=== PATIENT | female | born 1985 | race Caucasian/White ===

== ENCOUNTER 2021-08-13 09:37 | Emergency (ER) | payer SELFPAY ==
[2021-08-13 09:50] VITALS: BP 142/91; PULSE 79; RESP 16; TEMP 36.8; O2SAT 98; BMI 24.9
[2021-08-13 09:55] VITALS: BP 100/71; PULSE 85; RESP 20; O2SAT 100
--- NOTE | 2021-08-13 09:55 | XR_ITS ---
WS: [id number] PORTABLE CHEST HISTORY: cough COMPARISON: None available. Lungs are clear and well expanded. No pleural effusion or pneumothorax. Cardiac size: Normal. Mediastinum/Aorta: Normal mediastinum. No osseous abnormality seen. XR/XR chest 1V portable [id number] IMPRESSION: Unremarkable portable chest.
--- NOTE | 2021-08-13 09:55 | W.ED.URI ---
HPI - URI/Sore Throat General: Chief Complaint: General Medical Stated Complaint: COUGH AND DONT FEEL GOOD Time Seen by Provider: 08/13/21 09:38 Source: patient Mode of arrival: ambulatory Limitations: no limitations History of Present Illness: HPI Narrative: Patient is a 35-year-old female who presents to ED today with a complaint of not feeling well . Patient tells me she is having nasal congestion, rhinorrhea, sinus pain, sore throat, and a cough. She has not been running fevers. She does not complain of body aches. No abdominal pain/nausea/vomiting/diarrhea. She states her son was recently sick with similar symptoms. She does not complain of chest pain or shortness of breath. No loss of taste or smell. She is un-vaccinated for COVID. MD elicited complaint: cough, sore throat, rhinorrhea, nasal congestion and sinus pain Onset (ago): day(s) Consistency: constant Severity: moderate Description of mucous: clear Able to tolerate fluids by mouth: Yes Exacerbating factors: nothing Relieving factors: nothing Context: sick contacts (son) Associated symptoms: Reports nasal congestion and sinus pain; Deny abdominal pain, chills, chest pain, diarrhea, epistaxis, ear or mastoid pain, fever(s), headache(s), nausea or vomiting Treatments prior to arrival: none Review of Systems Const: Denies: fever(s), chills, body aches, fatigue or malaise Eyes: Denies: change in vision, blurry vision or photophobia ENMT: Reports: throat pain, odynophagia, nasal discharge, nasal congestion and sinus pain; Denies: ear or mastoid pain, ear discharge or epistaxis Card: Denies: chest pain, palpitations, irregular heart rhythm, edema, lightheadedness, syncope or pre-syncope Resp: Reports: productive cough and chest congestion; Denies: dyspnea, wheezing, pain on inspiration or hemoptysis GI: Denies: abdominal pain, nausea, vomiting or diarrhea : Denies: flank pain or dysuria Musc: Denies: neck pain, back pain, extremity pain or joint pain Skin/Breast: Denies: rash Neuro: Denies: headache(s), numbness in extremities, weakness in extremities, sensory changes or dizziness Physical Exam Const: COMMON NORMALS: no acute distress, average body habitus, patient oriented x3, no limitations, healthy appearing, alert and well nourished GENERAL APPEARANCE: cooperative ORIENTATION/CONSCIOUSNESS: Yes awake, Yes oriented to person, Yes oriented to place and Yes oriented to time HENMT: COMMON NORMALS: normocephalic, atraumatic, hearing grossly normal bilaterally, external ears normal, EAC's normal, TM's normal bilaterally, Normal external nose present, Normal nasal mucous membranes and turbinates present, moist oral mucous membranes and oropharynx normal HEAD & SCALP: normal to inspection, normocephalic and atraumatic FACE & SINUS: normal facial exam and sinuses nontender NOSE: Normal external nose present and Normal nasal mucous membranes and turbinates present EXTERNAL EAR: Yes external ears normal EXTERNAL AUDITORY CANAL: EAC's normal TYMPANIC MEMBRANE: TM's normal bilaterally MOUTH: Normal oral and palatal mucosa present, lip normal and tongue normal THROAT: posterior oropharynx normal, tonsils normal and uvula midline Eye: COMMON NORMALS: Equal, round and reactive pupils present, EOMs intact bilaterally and conjunctivae normal GENERAL EYE: appearance normal, both eyes and all related structures CONJUNCTIVA: Yes conjunctivae normal PUPIL: Yes Equal, round and reactive pupils present Neck/C-Spine: COMMON NORMALS: full ROM, no lymphadenopathy and no meningeal signs GENERAL: Yes normal visual inspection Resp: COMMON NORMALS: normal respiratory effort and clear to auscultation bilaterally AUSCULTATION: clear to auscultation bilaterally Cardio: COMMON NORMALS: regular rate and regular rhythm RATE: regular rate RHYTHM: regular rhythm Extremity: COMMON NORMALS: normal to inspection Neuro: COMMON NORMALS: patient oriented x3 SENSORIUM/ORIENTATION: Yes alert, Yes oriented to person, Yes oriented to place and Yes oriented to time MENINGEAL SIGNS: Yes no meningeal signs Skin: COMMON NORMALS: no rashes or lesions noted GENERAL SKIN EXAM: no rashes or lesions noted Course Vital Signs: Vital signs: Vital Signs Temperature 98.6 F 08/13/21 11:29 Pulse Rate 64 08/13/21 11:29 Respiratory Rate 20 H 08/13/21 11:29 Blood Pressure 95/71 08/13/21 11:29 Pulse Oximetry 98 08/13/21 11:29 MDM - URI/Sore Throat MDM Narrative: Medical decision making narrative: Patient appears in no acute distress. Her vital signs are stable. Symptoms most likely consistent with viral upper respiratory especially given the fact that her son recently recovered from almost identical symptoms. Rapid COVID is negative. CXR is normal. Recommend conservative treatment at home and follow-up with primary care early next week if symptoms are persisting. Return to ED precautions given. Lab Data: Attestation: I reviewed the patient's lab results. Labs: Lab Results 08/13/21 10:23 SARS-CoV-2 Ag (Rap id) Negative (Negative) Imaging Data^: CXR: Radiologist's impression: [address] [id number] ReportSigned Patient: Vivian Conroy #: [id number]: [id number]#:[id number]/Sex: 35 / FADM Date: 08/13/21Loc: ERRoom/Bed:Attending Dr: Ordering Provider/Ordering MD: Sandra Carvajal Date of Service: 08/13/21 Procedure(s): XR chest 1V portable [id number] Accession Number(s): [id number] Report Number: [id number] WS: [id number] PORTABLE CHEST HISTORY: cough COMPARISON: None available. Lungs are clear and well expanded. No pleural effusion or pneumothorax. Cardiac size: Normal. Mediastinum/Aorta: Normal mediastinum. No osseous abnormality seen. XR/XR chest 1V portable [id number] IMPRESSION: Unremarkable portable chest. Dictated By:Keyana Collins DOSigned By:Keyana Collins DOSigned Date/Time:08/13/21 1010DD/ 1010 Discharge Plan Discharge Patient Disposition: Home Clinical Impression: Upper respiratory virus Condition: Stable Discharge Orders: Discharge ED (Routine); Ordered 08/13/21 Ordered By: Sandra Carvajal Referrals: Alvarez,BILLY Whitaker [Primary Care Provider] - Patient Instructions: Upper Respiratory Infection - Adult Coding Level of Care Code ED Director Statistical Programming for Chg Fwd Exam Comprehensive
[2021-08-13 11:16] LABS: SARS Covid-2 Antigen Negative (Negative)
[2021-08-13 11:29] VITALS: BP 95/71; PULSE 64; RESP 20; TEMP 37; O2SAT 98
== END 2021-08-13 11:31 | disposition home or self-care (01) ==
PROVIDERS: Emergency Provider Physician Assistant; PCP Nurse Practitioner Family
DX: J06.9 Acute upper respiratory infection, unspecified (principal); Z20.822 Contact with and (suspected) exposure to COVID-19
CPT/HCPCS: 71045; 87426; 99282

== ENCOUNTER → 2021-11-26 13:19 | Outpatient (BNVA) | payer OTHER, SELFPAY | PROVIDERS: PCP Nurse Practitioner Family | DX: Z20.822 Contact with and (suspected) exposure to COVID-19 (principal) | CPT/HCPCS: 87635 ==

== ENCOUNTER 2023-08-16 15:19 | Outpatient (CLI) | payer OTHER, SELFPAY ==
--- NOTE | 2023-08-16 15:50 | MM_ITS ---
WS: [id number] BILATERAL 3D TOMOSYNTHESIS DIGITAL DIAGNOSTIC MAMMOGRAPHY WITH CAD CLINICAL INFORMATION: RT BR LUMP HISTORY: RIGHT breast soreness COMPARISON: Baseline TECHNIQUE: Bilateral CC, MLO, and ML views. FINDINGS: Scattered fibroglandular densities bilaterally. Dense parenchymal tissue upper outer RIGHT breast in the area of concern. Ultrasound of this area is pending. No other suspicious abnormalities. LEFT breast is unremarkable. ULTRASOUND BREAST RIGHT TECHNIQUE: Ultrasound right breast focused area of concern. CLINICAL INFORMATION: RT BR LUMP FINDINGS: Ultrasound RIGHT breast upper outer quadrant. Normal underlying parenchymal tissue. No cystic or leodan d lesions. No suspicious lesions to target for biopsy. Recommend annual screening mammography age 40. IMPRESSION: MM/[place] [id number] BI-RADS: 2-Benign FOLLOW UP: Age 42
== END 2023-08-16 15:20 | disposition home or self-care (01) ==
LOC: RAD 15:20
PROVIDERS: PCP Nurse Practitioner Family; Visit Provider Nurse Practitioner Family
DX: N63.11 Unspecified lump in the right breast, upper outer quadrant (principal)
CPT/HCPCS: 76642; 77062; G0279

== ENCOUNTER → 2024-01-17 10:50 | Outpatient (BNVA) | payer MEDICAID, SELFPAY | PROVIDERS: PCP Nurse Practitioner Family; Visit Provider Nurse Practitioner Family | DX: G43.909 Migraine, unspecified, not intractable, without status migrainosus (principal); Z13.6 Encounter for screening for cardiovascular disorders | CPT/HCPCS: 80053; 80061; 82607; 83735; 84443; 85025 ==

== ENCOUNTER → 2024-01-31 11:19 | Outpatient (BNVA) | payer MEDICAID, SELFPAY | PROVIDERS: PCP Nurse Practitioner Family; Visit Provider Nurse Practitioner Family | DX: R35.0 Frequency of micturition (principal); Z11.3 Encounter for screening for infections with a predominantly sexual mode of transmission; J02.9 Acute pharyngitis, unspecified; Z12.4 Encounter for screening for malignant neoplasm of cervix | CPT/HCPCS: 81000; 81025; 87491; 87591; 87624; 87661; 87880 ==

== ENCOUNTER 2024-08-12 20:07 | Inpatient (IN) | payer MEDICAID, SELFPAY ==
[2024-08-12] VITALS (13 sets, daily range): BP systolic 99–161; BP diastolic 69–94; PULSE 71–108; RESP 13–18; TEMP 36.8; O2SAT 94–100; BMI 28.3
--- NOTE | 2024-08-12 20:36 | ED_ITS ---
Documented by User: Juan José VelezDO 08/12/24 20:42 HPI - Extremity Problem 2 General: Chief complaint: Extremity Injury, Lower Stated complaint: Bit By Snake Time Seen by Provider: 08/12/24 20:26 History of Present Illness: Patient arrives to the ER with complaints of snake bite on the back of her right ankle. Right ankle and foot are largely swollen. She says she is having very sharp severe pain. Patient says she did see the copperhead that bit her. The bite occurred at approximately 6 PM. Patient is never been bitten before. Related Data Previous Rx's Medication Instructions Recorded phentermine 37.5 mg tablet 37.5 mg PO DAILY #30 tabs 01/17/24 sumatriptan succinate 100 mg tablet See Rx Instructions PO .COMPLEX 01/17/24 #10 tabs topiramate 25 mg tablet (Topamax) 25 mg PO BID #60 tabs 01/17/24 etonogestrel 0.12 mg-ethinyl 1 vag ring vaginal ONCE #3 ea 01/31/24 estradiol 0.015 mg/24 hr vaginal ring (NuvaRing) Allergies Allergy/AdvReac Type Severity Reaction Status Date / Time No Known Allergies Allergy Verified 01/17/24 10:21 Review of Systems 2 General: Reports: 10 or more systems reviewed and unremarkable except in HPI and below PFSH ED 2 PFSH: Social History Smoking and tobacco/nicotine status: current every day tobacco/nicotine user cigarettes Female Reproductive History: Date of last menstrual period: 08/12/24 Physical Exam 2 Const: COMMON NORMALS: no acute distress, average body habitus, patient oriented x3, no limitations, healthy appearing, alert and well nourished HENMT: COMMON NORMALS: normocephalic, atraumatic, hearing grossly normal bilaterally, external ears normal, Normal external nose present and moist oral mucous membranes HEAD & SCALP: normocephalic and atraumatic NOSE: Normal external nose present EXTERNAL EAR: Yes external ears normal Neck/C-Spine: COMMON NORMALS: full ROM, no lymphadenopathy, supple, no meningeal signs, no JVD and Thyroid normal THYROID: Thyroid normal Chest: COMMONS NORMALS: normal inspection of the chest and normal palpation of entire chest wall Resp: COMMON NORMALS: normal respiratory effort, No retractions, No use of accessory muscles and clear to auscultation bilaterally AUSCULTATION: clear to auscultation bilaterally Cardio: COMMON NORMALS: no JVD, regular rate, regular rhythm, S1 normal heart sound present, S2 normal heart sound present, No gallops present (Cardio), No clicks present (Cardio), No murmurs present (Cardio) and No rub (Cardio) R ATE: regular rate RHYTHM: regular rhythm HEART SOUNDS: S1 normal heart sound present and S2 normal heart sound present GI: COMMON NORMALS: Normal to inspection, nondistended, normoactive bowel sounds present, Soft to palpation, non-tender, No hepatosplenomegaly present and no masses PALPATION: Yes Soft to palpation and Yes No hepatosplenomegaly present Extremity: NARRATIVE EXTREMITY EXAM: Right lower extremity grossly swollen Neuro: COMMON NORMALS: patient oriented x3 SENSORIUM/ORIENTATION: Yes alert MENINGEAL SIGNS: Yes no meningeal signs Course 2 Vital Signs: Vital signs: Vital Signs Temperature 97.9 F 08/13/24 14:00 Pulse Rate 94 08/13/24 16:00 Respiratory Rate 18 08/13/24 16:20 Blood Pressure 104/67 08/13/24 16:00 Pulse Oximetry 100 08/13/24 16:20 Oxygen Delivery Me thod Room Air 08/13/24 05:15 MDM - Extremity (Nontraumatic) Medical Records I reviewed the patient's medical records. Lab Data I reviewed the patient's lab results. 08/13/24 13:07 08/12/24 20:49 Radiology Impressions Venous Duplex 08/13/24 05:44 IMPRESSION: No evidence of deep vein thrombosis. Laboratory Results WBC 13.21 10^3/uL (3.29-11.43) H 08/13/24 01:29 RBC 4.74 10^6/uL (3.85-5.65) 08/13/24 01:29 Hgb 14.20 g/dL (11.27-16.99) 08/13/24 01: Hct 44.7 % (36-47) 08/13/24 01: MCV 94.3 fl (85-98) 08/13/24 01: MCH 30.0 pg (27-33) 08/13/24 01: MCHC 31.8 g/dL (30-55) D 08/13/24 01: RDW 12.4 % (12.1-15.1) 08/13/24: Plt Count 245 10^3/cmm (157-399) 08/13/24 01: MPV 9.7 fL (7.4-10.4) 08/13/24 01: Neut % (Auto) 91.3 % 08/13/24 01: Lymph % (Auto) 5.8 % 08/13/24 01: [place] % (Auto) 2.3 % 08/13/24 01: Eos % (Auto) 0.1 % 08/13/24 01: Baso % (Auto) 0.2 % 08/13/24: Neut # (Auto) 12.05 10^3/uL (1.8-7.7) H 08/13/24 01: Lymph # (Auto) 0.8 10^3/uL (0.8-4.8) 08/13/24: [place] # (Auto) 0.3 10^3/uL (0.2-0.9) 08/13/24 01: Eos # (Auto) 0.0 10^3/uL (0.0-0.8) 08/13/24: Baso # (Auto) 0.0 10^3/uL (0.0-0.1) 08/13/24: Nucleated RBC % (auto) 0 % 08/13/24: Nucleated RBCs # 0.0 /100WBC 08/13/24 01: PT 12.70 SECONDS (12.1-14.9) 08/12/24 20:49 INR 0.93 (0.8-1.2) 08/12/24 20:49 Fibrinogen 256 mg/dL (174-498) 08/13/24 01:29 Sodium 138 mmol/L (136-145) 08/12/24 20:49 Potassium 3.7 mmol/L (3.5-5.1) 08/12/24 20:49 Chloride 101 mmol/L (98-107) 08/12/24 20:49 Carbon Dioxide 26 mmol/L (22-29) 08/12/24 20:49 Anion Gap 14.7 (5-19) 08/12/24 20:49 BUN 17 mg/dL (6-20) 08/12/24 20:49 Creatinine 0.7 mg/dL (0.5-0.9) 08/12/24 20:49 GFR Calculation 94.7 mL/min (90-130) 08/12/24 20:49 Glucose 79 mg/dL (65-115) 08/12/24 20:49 Calculated Osmolality 286 mOsm/kg (285-295) 08/12/24 20:49 Calcium 9.9 mg/dL (8.5-10.5) 08/12/24 20:49 Total Bilirubin 0.3 mg/dL (0.15-1.2) 08/12/24 20:49 AST 18 U/L (0-32) 08/12/24 20:49 ALT 12 U/L (0-33) 08/12/24 20:49 Alkaline Phosphatase 54 U/L (35-105) 08/12/24 20:49 Creatine Kinase 131 U/L (26-192) 08/12/24 20:49 Total Protein 7.5 g/dL (6.6-8.7) 08/12/24 20:49 Albumin 4.7 g/dL (3.5-5.2) 08/12/24 20:49 Globulin 2.8 g/dL (1.3-4.6) 08/12/24 20:49 No radiology studies performed this visit Discharge Plan Discharge Patient Disposition: Placed in Observation Admit Provider: Ramana Car Clinical Impression: Poisoning by pit viper venom Coding Level of Care Code ED Route Process Administrator for Chg Fwd Documented by User: David Reynoso DO 08/13/24 16:46 HPI - Extremity Problem 2 General: Chief complaint: Extremity Injury, Lower Stated complaint: Bit By Snake Time Seen by Provider: 08/12/24 20:26 Related Data Previous Rx's Medication Instructions Recorded phentermine 37.5 mg tablet 37.5 mg PO DAILY #30 tabs 01/17/24 sumatriptan succinate 100 mg tablet See Rx Instructions PO .COMPLEX 01/17/24 #10 tabs topiramate 25 mg tablet (Topamax) 25 mg PO BID #60 tabs 01/17/24 etonogestrel 0.12 mg-ethinyl 1 vag ring vaginal ONCE #3 ea 01/31/24 estradiol 0.015 mg/24 hr vaginal ring (NuvaRing) Allergies Allergy/AdvReac Type Severity Reaction Status Date / Time No Known Allergies Allergy Verified 01/17/24 10:21 PFS ED 2 PFSH: Social History Smoking and tobacco/nicotine status: current every day tobacco/nicotine user cigarettes Course 2 Vital Signs: Vital signs: Vital Signs Temperature 97.9 F 08/13/24 14:00 Pulse Rate 94 08/13/24 16:00 Respiratory Rate 18 08/13/24 16:20 Blood Pressure 104/67 08/13/24 16:00 Pulse Oximetry 100 08/13/24 16:20 Oxygen Delivery Me thod Room Air 08/13/24 05:15 MDM - Extremity (Nontraumatic) Medical Decision Making 38-year-old female checked out at shift change. She has significant right lower extremity swelling and tenderness following a snake bite envenomation. She believes it was a copperhead. By her description, it does sound as such. Despite pain medication, anti-inflammatories, Solu-Medrol, and Benadryl, swelling continues to worsen. It is going up proximal to her knee now, crossing 2 joints essentially. Because of this, electing to give CroFab. However, her coagulation markers have remained normal. She has had multiple doses of pain medication which helped to some degree. She is tolerating the CroFab without problems. She is not hypotensive. She is not tachycardic. Spoke with the hospitalist. We will observe given the fact that worsening swelling necessitated CroFab infusion initially. She will go to the ICU. Lab Data 08/13/24 13:07 08/12/24 20:49 Radiology Impressions Venous Duplex 08/13/24 05:44 IMPRESSION: No evidence of deep vein thrombosis. Laboratory Results WBC 13.21 10^3/uL (3.29-11.43) H 08/13/24 01: RBC 4.74 10^6/uL (3.85-5.65) 08/13/24 01: Hgb 14.20 g/dL (11.27-16.99) 08/13/24 01: Hct 44.7 % (36-47) 08/13/24 01: MCV 94.3 fl (85-98) 08/13/24 01: MCH 30.0 pg (27-33) 08/13/24 01: MCHC 31.8 g/dL (30-55) D 08/13/24 01: RDW 12.4 % (12.1-15.1) 08/13/24: Plt Count 245 10^3/cmm (157-399) 08/13/24 01: MPV 9.7 fL (7.4-10.4) 08/13/24 01: Neut % (Auto) 91.3 % 08/13/24 01: Lymph % (Auto) 5.8 % 08/13/24 01: [place] % (Auto) 2.3 % 08/13/24 01: Eos % (Auto) 0.1 % 08/13/24: Baso % (Auto) 0.2 % 08/13/24 01: Neut # (Auto) 12.05 10^3/uL (1.8-7.7) H 08/13/24: Lymph # (Auto) 0.8 10^3/uL (0.8-4.8) 08/13/24 01: [place] # (Auto) 0.3 10^3/uL (0.2-0.9) 08/13/24 01: Eos # (Auto) 0.0 10^3/uL (0.0-0.8) 08/13/24: Baso # (Auto) 0.0 10^3/uL (0.0-0.1) 08/13/24 01: Nucleated RBC % (auto) 0 % 08/13/24 01: Nucleated RBCs # 0.0 /100WBC 08/13/24 01: PT 12.70 SECONDS (12.1-14.9) 08/12/24 20:49 INR 0.93 (0.8-1.2) 08/12/24 20:49 Fibrinogen 256 mg/dL (174-498) 08/13/24 01:29 Sodium 138 mmol/L (136-145) 08/12/24 20:49 Potassium 3.7 mmol/L (3.5-5.1) 08/12/24 20:49 Chloride 101 mmol/L (98-107) 08/12/24 20:49 Carbon Dioxide 26 mmol/L (22-29) 08/12/24 20:49 Anion Gap 14.7 (5-19) 08/12/24 20:49 BUN 17 mg/dL (6-20) 08/12/24 20:49 Creatinine 0.7 mg/dL (0.5-0.9) 08/12/24 20:49 GFR Calculation 94.7 mL/min (90-130) 08/12/24 20:49 Glucose 79 mg/dL (65-115) 08/12/24 20:49 Calculated Osmolality 286 mOsm/kg (285-295) 08/12/24 20:49 Calcium 9.9 mg/dL (8.5-10.5) 08/12/24 20:49 Total Bilirubin 0.3 mg/dL (0.15-1.2) 08/12/24 20:49 AST 18 U/L (0-32) 08/12/24 20:49 ALT 12 U/L (0-33) 08/12/24 20:49 Alkaline Phosphatase 54 U/L (35-105) 08/12/24 20:49 Creatine Kinase 131 U/L (26-192) 08/12/24 20:49 Total Protein 7.5 g/dL (6.6-8.7) 08/12/24 20:49 Albumin 4.7 g/dL (3.5-5.2) 08/12/24 20:49 Globulin 2.8 g/dL (1.3-4.6) 08/12/24 20:49 Discharge Plan Discharge Patient Disposition: Placed in Observation Admit Provider: Ramana Car Clinical Impression: Poisoning by pit viper venom Coding Level of Care Code ED Route Process Administrator for Hernang Onur
[2024-08-12] MEDS: morphine 4 mg/mL SDV 1 mL IVP ×2 (20:53→21:13)
[2024-08-12] MEDS: ondansetron 2 mg/ML SDV 2 mL 4 MG IVP (20:53)
[2024-08-12] MEDS: sodium chloride 0.9% 1,000 ML 999 ML IV (20:53)
[2024-08-12 20:59] LABS: Basophils # 0.1 10^3/uL (0.0-0.1); Basophils % 0.6 %; Eosinophils # 0.1 10^3/uL (0.0-0.8); Eosinophils % 1.7 %; Hematocrit 43.7 % (36-47); Lymphocytes # 2.3 10^3/uL (0.8-4.8); Lymphocytes % 28.4 %; Mean Corpuscular HGB Conc 33.9 g/dL (30-55); Mean Corpuscular Hemoglobin 30.5 pg (27-33); Mean Corpuscular Volume 90.1 fl (85-98); Mean Platelet Volume 9.8 fL (7.4-10.4); Monocytes # 0.6 10^3/uL (0.2-0.9); Monocytes % 7.3 %; Neutrophils # 5.06 10^3/uL (1.8-7.7); Neutrophils % 61.9 %; Nucleated Red Blood Cells % 0 %; Platelet Count 295 10^3/cmm (157-399); Red Blood Count 4.85 10^6/uL (3.85-5.65); Red Cell Distribution Width 12.4 % (12.1-15.1); White Blood Count 8.19 10^3/uL (3.29-11.43)
[2024-08-12 21:19] LABS: Alanine Aminotransferase 12 U/L (0-33); Albumin Level 4.7 g/dL (3.5-5.2); Alkaline Phosphatase 54 U/L (35-105); Blood Urea Nitrogen 17 mg/dL (6-20); Calcium 9.9 mg/dL (8.5-10.5); Carbon Dioxide 26 mmol/L (22-29); Chloride 101 mmol/L (98-107); Creatine Phosphokinase 131 U/L (26-192); Creatinine Clr Calc Pharmacy 110.0741; Globulin 2.8 g/dL (1.3-4.6); Glomerular Filtration Rate 94.7 mL/min (90-130); Glucose 79 mg/dL (65-115); Osmolality Calculated 286 mOsm/kg (285-295); Sodium 138 mmol/L (136-145); Total Bilirubin 0.3 mg/dL (0.15-1.2); Total Protein 7.5 g/dL (6.6-8.7)
[2024-08-12 21:32] LABS: INR 0.93 (0.8-1.2)
[2024-08-12 21:35] LABS: Anion Gap 14.7 (5-19); Aspartate Amino Transferase 18 U/L (0-32); Potassium 3.7 mmol/L (3.5-5.1)
[2024-08-12 22:01] LABS: Fibrinogen 290 mg/dL (174-498)
[2024-08-12] MEDS: diphenhydrAMINE 50 mg/mL SDV 1mL IVP (22:09)
[2024-08-12] MEDS: ketorolac 30 mg/mL INJ IVP (22:09)
[2024-08-12] MEDS: methylPREDNISolone sod succ 125 mg/2 mL INJ 80 MG IVP (22:10)
[2024-08-12] MEDS: fentaNYL 50 mcg/mL INJ 2mL IVP (22:10)
[2024-08-13] VITALS (42 sets, daily range): BP systolic 90–128; BP diastolic 49–86; PULSE 54–100; RESP 12–31; TEMP 36.3–36.8; O2SAT 83–100; BMI 29.7
[2024-08-13] MEDS: HYDROmorphone 1 mg/mL INJ 1 mL IVP (01:25)
[2024-08-13] MEDS: ondansetron 2 mg/ML SDV 2 mL 4 MG IVP (01:26)
[2024-08-13 01:34] LABS: Basophils % 0.2 %; Eosinophils % 0.1 %; Hematocrit 44.7 % (36-47); Lymphocytes # 0.8 10^3/uL (0.8-4.8); Lymphocytes % 5.8 %; Mean Corpuscular HGB Conc 31.8 g/dL (30-55); Mean Corpuscular Volume 94.3 fl (85-98); Mean Platelet Volume 9.7 fL (7.4-10.4); Monocytes # 0.3 10^3/uL (0.2-0.9); Monocytes % 2.3 %; Neutrophils # 12.05 10^3/uL (1.8-7.7); Neutrophils % 91.3 %; Nucleated Red Blood Cells % 0 %; Platelet Count 245 10^3/cmm (157-399); Red Blood Count 4.74 10^6/uL (3.85-5.65); Red Cell Distribution Width 12.4 % (12.1-15.1); White Blood Count 13.21 10^3/uL (3.29-11.43)
[2024-08-13 01:47] LABS: Fibrinogen 256 mg/dL (174-498)
[2024-08-13] MEDS: crotalidae antivenin 4 GM in sodium chloride 0.9% 250 ML IV (04:19)
--- NOTE | 2024-08-13 04:30 | PC.NURSE ---
per instructions with medication vials, antivenin started at 25 mL/hr at 0419. at 0429, infusion rate titrated to 50 mL/hr. instructions state to initiate at 25-50 mL/hr for the first 10-15 minutes. if patient tolerates without adverse reactions, it is instructed to titrate up to the prescribed dose of 250 mL/hr. medication was titrated to 250 mL/hr at 0435. this cannot be reflected in the MAR properly due to lack of titration option with this medication. MD aware of this instruction and confirmed as well.
--- NOTE | 2024-08-13 05:44 | USR_ITS ---
PROCEDURE INFORMATION: Exam: US Duplex Right Lower Extremity Veins, Limited Exam date and time: 08/13/2024 10:08 AM Age: 38 years old Clinical indication: Injury or trauma; Other: Snake bite; Other: Copperhead bite to ankle; Injury date: 08/12/2024; Additional info: Assess for dvt TECHNIQUE: Imaging protocol: Real-time duplex ultrasound of the right extremity with 2-D cabrera scale, color Doppler flow and spectral waveform analysis including responses to compression and other maneuvers (when performed) with image documentation. Limited exam was focused on the right lower extremity veins. COMPARISON: No relevant prior studies available. FINDINGS: Right deep veins: Unremarkable. The common femoral, femoral, proximal profunda femoral and popliteal veins are patent without thrombus. Normal Doppler waveforms. Normal compressibility and/or augmentation response. Superficial veins: Greater saphenous vein at the saphenofemoral junction is patent without thrombus. Soft tissues: Unremarkable. US/[place] [id number] IMPRESSION: No evidence of deep vein thrombosis.
--- NOTE | 2024-08-13 05:45 | P.HP_ITS ---
Providers/Chief Complaint 2 Admitting Physician: Ramana Car Chief Complaint: Snake Bite History of Present Illness 38 yearly with history of migraine, former smoker, without significant other medical history was walking her dogs when she got bit on the ankle by a copperhead which she then spotted. In ER she is experienced swelling around the right ankle down to the foot with bruising on the lateral side, as well as swelling tracking up the leg to and then crossing the knee. She was started on CroFab. Review of Systems 2 Const: Denies: fever(s), chills, body aches or malaise ENMT: Denies: throat pain Card: Denies: chest pain, edema, pre-syncope or dyspnea on exertion Resp: Denies: dyspnea, productive cough, change in phlegm color or hemoptysis GI: Denies: abdominal pain, nausea, vomiting, diarrhea, constipation, hematochezia or melena : Denies: flank pain, urinary frequency or hematuria Musc: Reports: extremity pain and extremity swelling; Denies: back pain Skin/Breast: Denies: rash or new lesions Neuro: Denies: headache(s) or dizziness Medications/Allergies Home Medications Medication Instructions Recorded Confirmed Last Taken Type phentermine 37.5 mg tablet 37.5 mg PO DAILY #30 tabs 01/17/24 02/17/24 Unknown Rx sumatriptan succinate 100 mg tablet See Rx Instructions PO .COMPLEX 01/17/24 02/17/24 Unknown Rx #10 tabs topiramate 25 mg tablet (Topamax) 25 mg PO BID #60 tabs 01/17/24 02/17/24 Unknown Rx etonogestrel 0.12 mg-ethinyl 1 vag ring vaginal ONCE #3 ea 01/31/24 01/31/24 Unknown Rx estradiol 0.015 mg/24 hr vaginal ring (NuvaRing) Allergies Allergy/AdvReac Type Severity Reaction Status Date / Time No Known Allergies Allergy Verified 01/17/24 10:21 PFSH Acute 2 PFSH: Social History Smoking and tobacco/nicotine status: current every day tobacco/nicotine user cigarettes Female Reproductive History: Date of last menstrual period: 08/12/24 Vitals/I&O/Wt Last Vital Signs Temp 98.2 F 08/12/24 20:11 Pulse 75 08/13/24 04:45 Resp 19 H 08/13/24 04:45 BP 104/50 08/13/24 04:45 Pulse Ox 97 08/13/24 04:45 O2 Del Method Room Air 08/13/24 04:45 08/12/24 08/12/24 08/13/24 14:59 22:59 06:59 Intake Total 1000 / 1000 Balance 1000 / 1000 Weight last 48 hrs Weight 74.843 kg Physical Exam 2 Const: COMMON NORMALS: patient oriented x3 and alert GENERAL APPEARANCE: c ooperative ORIENTATION/CONSCIOUSNESS: Yes awake HENMT: COMMON NORMALS: oropharynx normal Neck/C-Spine: COMMON NORMALS: no JVD Resp: COMMON NORMALS: normal respiratory effort and clear to auscultation bilaterally AUSCULTATION: clear to auscultation bilaterally Cardio: COMMON NORMALS: no JVD, regular rhythm, S1 normal heart sound present, S2 normal heart sound present and No murmurs present (Cardio) RHYTHM: regular rhythm HEART SOUNDS: S1 normal heart sound present and S2 normal heart sound present GI: COMMON NORMALS: Normal to inspection, nondistended, normoactive bowel sounds present, Soft to palpation and non-tender PALPATION: Yes Soft to palpation Extremity: COMMON NORMALS: no joint enlargement and no pedal edema OTHER: Swelling of right lower extremity, puncture site at posterior right ankle. Swelling of foot and toes, as well as tracking up the lower leg and crossing above the right knee. Swelling is soft. Bruising on the right dorsal lateral foot. Neuro: COMMON NORMALS: patient oriented x3 and moves all extremities S ENSORIUM/ORIENTATION: Yes alert Skin: COMMON NORMALS: no rashes or lesions noted GENERAL SKIN EXAM: no rashes or lesions noted Data 08/13/24 01:29 08/12/24 20:49 A&P Assessment and plan (1) Poisoning by pit viper venom: Right ankle and foot swollen on arrival to ER, bitten by copperhead snake on the back of the right ankle, around 6 PM while walking her dogs. With signs of envenomation, subsequently signs of progression with worsening edema. Blood pressure soft down as low as 91/49. Reviewed vitals, CBC, INR, CMP, CK, ER note, discussed with ER provider. Swelling has been progressing from the right ankle down to the rest of the foot and toes as well as up the right lower leg and across the knee. She was given CroFab which was started before 5 AM, looks like around 4: 19. There is pain, tenderness, swelling of right lower extremity, bruising of the dorsal lateral right foot. So far blood pressure has been soft, but otherwise afebrile, with mild leukocytosis 13.21, platelets are normal, INR was checked, fibrinogen as well and both normal. CK normal. He is having quite a bit of pain, became nauseated after morphine. Complete CroFab initial dose. Please reassess 1 hour later. Admitted to ICU, monitor for risk of anaphylactic reaction. If any further worsening, consider repeating dose, although most people do not require repeat dosing as per discussion with poison control. Edema is soft and not taut. Monitor for any signs of compartment syndrome. Requested tetanus update. Additionally will assess lower extremity duplex for any DVT. Elevate right lower extremity, keep immobile. Acetaminophen, Toradol as needed for pain. IV Dilaudid for severe breakthrough pain which she has been needing. Plan History of migraine headaches: No recent headaches Former smoker, has quit. Attestations 2 Medical Necessity Statement*: Place in observation for additional assessment and management following copperhead envenomation, significant swelling across multiple joints. Coding Level of Care Code Critical Care >/= 30 minutes Critical care time (in minutes): 35 The high probability of a clinically significant, sudden or life threatening deterioration, as referenced in this documentation, required my full and direct attention, intervention and personal management. The critical care time shown is in addition to time spent performing any reported separately billable procedures and includes the following: [x] Data and vital sign review and interpretation [x ] Patient assessment, examination and intervention [x] Medication orders and management [x] Patient/Family updates as able [x] Care Coordination and Documentation. Diagnoses Poisoning by pit viper venom T63.091A High MDM includes amount and/or complexity of data reviewed/ordered as documented
[2024-08-13] MEDS: ketorolac 30 mg/mL INJ IVP ×3 (06:07→19:40)
[2024-08-13] MEDS: tetanus-diphtheria tox (adult) 0.5 mL SYRINGE IM (07:10)
[2024-08-13 07:27] LABS: Platelet Count 240 10^3/cmm (157-399)
[2024-08-13 07:45] LABS: Fibrinogen 278 mg/dL (174-498)
[2024-08-13 07:46] LABS: INR 1.05 (0.8-1.2)
[2024-08-13] MEDS: pantoprazole DR 40 mg Tablet PO (08:51)
[2024-08-13] MEDS: HYDROmorphone 1 mg/mL INJ 1 mL 0.5 MG IVP ×3 (08:51→18:10)
[2024-08-13] MEDS: enoxaparin 40 mg/0.4 mL Syringe SUBCUT (08:51)
[2024-08-13] MEDS: sodium chloride 0.9% 1,000 ML 75 ML IV ×2 (10:18→21:02)
[2024-08-13] MEDS: acetaminophen 325 mg Tablet 650 MG PO ×2 (10:24→20:56)
[2024-08-13 13:34] LABS: Platelet Count 250 10^3/cmm (157-399)
[2024-08-13 13:47] LABS: INR 1.05 (0.8-1.2)
[2024-08-13 13:48] LABS: Fibrinogen 279 mg/dL (174-498)
--- NOTE | 2024-08-13 14:29 | P.PN_ITS ---
Subjective 2 Subjective: No acute overnight events noted. Seen her at bedside this morning, she is still complaining of severe right lower extremity pain. Medications: Reviewed: Yes Vitals/I&O/Wt Last Vital Signs Temp 97.9 F 08/13/24 14:00 Pulse 74 08/13/24 14:00 Resp 16 08/13/24 14:04 BP 121/70 08/13/24 14:00 Pulse Ox 99 08/13/24 14:04 O2 Del Method Room Air 08/13/24 05:15 08/12/24 08/13/24 08/13/24 22:59 06:59 14:59 Intake Total 1250 / 1250 720 / 720 Balance 1250 / 1250 720 / 720 Weight last 48 hrs Weight 78.5 kg Weight 78.5 kg Weight 74.843 kg Physical Exam 2 Narrative: She is alert awake oriented x 3, in moderate distress due to right lower extremity pain. Chest clear to auscultation bilaterally Cardiovascular normal heart sounds Abdomen soft nontender nondistended normal bowel sounds Extremities left lower extremity no edema noted Right lower extremity-nonpitting edema noted, erythema, warmth improved still diffuse tenderness present. Snake bite woodward clean and crisp, no active signs of infection or cellulitis. Urinary Catheter Management: Faustin: Cath Placed During This Visit: yes Reason for Continuing Indwelling Catheter: Accurate Measurement of Urinary Output in Critically Ill Patients Urinary Catheter Date of Insertion: 08/13/24 Urinary Catheter Time of Insertion: 06:46 Data 08/13/24 13:07 08/12/24 20:49 A&P Assessment and plan (1) Poisoning by pit viper venom: Right ankle and foot swollen on arrival to ER, bitten by copperhead snake on the back of the right ankle, around 6 PM while walking her dogs. With signs of envenomation, subsequently signs of progression with worsening edema. Blood pressure soft down as low as 91/49. Reviewed vitals, CBC, INR, CMP, CK, ER note, discussed with ER provider. Swelling has been progressing from the right ankle down to the rest of the foot and toes as well as up the right lower leg and across the knee. She was given CroFab which was started before 5 AM, looks like around 4: 19. There is pain, tenderness, swelling of right lower extremity, bruising of the dorsal lateral right foot. So far blood pressure has been soft, but otherwise afebrile, with mild leukocytosis 13.21, platelets are normal, INR was checked, fibrinogen as well and both normal. CK normal. He is having quite a bit of pain, became nauseated after morphine. Complete CroFab initial dose. Please reassess 1 hour later. Admitted to ICU, monitor for risk of anaphylactic reaction. If any further worsening, consider repeating dose, although most people do not require repeat dosing as per discussion with poison control. Edema is soft and not taut. Monitor for any signs of compartment syndrome. Requested tetanus update. Additionally will assess lower extremity duplex for any DVT. Elevate right lower extremity, keep immobile. Acetaminophen, Toradol as needed for pain. IV Dilaudid for severe breakthrough pain which she has been needing. Plan History of migraine headaches: No recent headaches Former smoker, has quit. 08/13--s/p 1 CroFab treatment containing 4 vials. Has mild leukocytosis at 13.2. PT INR and fibrinogen normal. Spoke with poison control this morning, informed about the current examination findings showing improving erythema in the right lower extremity with no signs of infection/cellulitis around bite woodward. Recommended to avoid antibiotics unless has worsening erythema and obvious signs of cellulitis. Will do hydration with normal saline at 75 cc/h. Recommended to remove any constraining clothings, no socks. continue elevation of right extremity.will follow up. Venous duplex right lower extremity was negative for DVT. Will continue to monitor in ICU for next 24 hours. Attestations 2 Medical Necessity Statement*: Place in observation for additional assessment and management following copperhead envenomation, significant swelling across multiple joints. Time Spent in Patient Care: 20 minutes Coding Level of Care Code Acute Code for Chg Fwd Diagnoses Poisoning by pit viper venom T63.091A Time Spent (min) 20
[2024-08-13] MEDS: morphine 4 mg/mL SDV 1 mL 2 MG IVP (16:20)
[2024-08-13 19:14] LABS: Basophils % 0.3 %; Eosinophils # 0.1 10^3/uL (0.0-0.8); Eosinophils % 1.3 %; Hematocrit 39.2 % (36-47); Lymphocytes # 2.2 10^3/uL (0.8-4.8); Lymphocytes % 24.9 %; Mean Corpuscular HGB Conc 32.9 g/dL (30-55); Mean Corpuscular Hemoglobin 30.7 pg (27-33); Mean Corpuscular Volume 93.3 fl (85-98); Mean Platelet Volume 10.1 fL (7.4-10.4); Monocytes # 0.8 10^3/uL (0.2-0.9); Monocytes % 9.1 %; Neutrophils # 5.55 10^3/uL (1.8-7.7); Neutrophils % 64.1 %; Nucleated Red Blood Cells % 0 %; Platelet Count 254 10^3/cmm (157-399); Red Cell Distribution Width 12.8 % (12.1-15.1); White Blood Count 8.67 10^3/uL (3.29-11.43)
[2024-08-13 19:18] LABS: INR 0.99 (0.8-1.2)
[2024-08-13 19:19] LABS: Fibrinogen 282 mg/dL (174-498)
[2024-08-13 19:28] LABS: Partial Thromboplastin Time 29.3 SECONDS (23.9-36.7)
[2024-08-13 20:39] LABS: Anion Gap 9.6 (5-19); Blood Urea Nitrogen 12 mg/dL (6-20); Calcium 8.2 mg/dL (8.5-10.5); Carbon Dioxide 24 mmol/L (22-29); Chloride 108 mmol/L (98-107); Creatinine Clr Calc Pharmacy 131.4131; Glomerular Filtration Rate 113.1 mL/min (90-130); Glucose 111 mg/dL (65-115); Osmolality Calculated 286 mOsm/kg (285-295); Potassium 3.6 mmol/L (3.5-5.1); Sodium 138 mmol/L (136-145)
[2024-08-13] MEDS: ALPRAZolam 0.5 mg Tablet PO (20:56)
--- NOTE | 2024-08-13 21:14 | PC.NURSE ---
1902 -- Dr. Epperson called to ICU and spoke to this nurse. Reports that she has talked with Purvi from [facility] again regarding the increased redness, swelling, and pain to right leg. Poison control reports that this is a normal response after a snake bite and to be expected. Dr. Epperson reports that poison control also said that antibiotics are not recommended at this point and the best treatment is to elevate lower legs above the heart. 1919 -- Legs elevated higher on pillows and bed place in trendelenberg position. Notified that Poison control does not recommend antibiotics at this time and none have been currenty ordered. Patient becomes very upset and asking to talk to a doctor because she does not understand why we are not giving antibiotics and wants an explanation. 1924 -- Call placed to Dr. Car and updated that patient is very upset and wants to talk to a doctor. Dr. Car talked with Dr. Epperson and states that she will come up and talk to her. 1949 -- Dr. Epperson to bedside and talked with patient. Order for alprazolam 0.5mg PO ordered to assist patient to rest.
[2024-08-14] VITALS (22 sets, daily range): BP systolic 88–131; BP diastolic 49–95; PULSE 52–83; RESP 12–23; TEMP 36.6–36.8; O2SAT 92–99
[2024-08-14] MEDS: HYDROmorphone 1 mg/mL INJ 1 mL 0.5 MG IVP ×7 (03:33→22:16)
[2024-08-14] MEDS: ketorolac 30 mg/mL INJ IVP (03:41)
[2024-08-14 04:07] LABS: Basophils % 0.6 %; Eosinophils # 0.1 10^3/uL (0.0-0.8); Eosinophils % 1.9 %; Hematocrit 36.9 % (36-47); Lymphocytes # 2.6 10^3/uL (0.8-4.8); Lymphocytes % 37.5 %; Mean Corpuscular HGB Conc 32.2 g/dL (30-55); Mean Corpuscular Hemoglobin 30.1 pg (27-33); Mean Corpuscular Volume 93.2 fl (85-98); Mean Platelet Volume 10.1 fL (7.4-10.4); Monocytes # 0.6 10^3/uL (0.2-0.9); Monocytes % 7.8 %; Neutrophils # 3.65 10^3/uL (1.8-7.7); Neutrophils % 51.9 %; Nucleated Red Blood Cells % 0 %; Platelet Count 228 10^3/cmm (157-399); Red Blood Count 3.96 10^6/uL (3.85-5.65); Red Cell Distribution Width 12.8 % (12.1-15.1); White Blood Count 7.02 10^3/uL (3.29-11.43)
[2024-08-14 04:20] LABS: Partial Thromboplastin Time 27.4 SECONDS (23.9-36.7)
[2024-08-14 04:24] LABS: Alanine Aminotransferase 8 U/L (0-33); Albumin Level 3.3 g/dL (3.5-5.2); Alkaline Phosphatase 40 U/L (35-105); Anion Gap 11.6 (5-19); Aspartate Amino Transferase 11 U/L (0-32); Blood Urea Nitrogen 10 mg/dL (6-20); Carbon Dioxide 23 mmol/L (22-29); Chloride 109 mmol/L (98-107); Creatinine Clr Calc Pharmacy 157.6958; Globulin 1.8 g/dL (1.3-4.6); Glomerular Filtration Rate 139.6 mL/min (90-130); Glucose 106 mg/dL (65-115); Osmolality Calculated 289 mOsm/kg (285-295); Potassium 3.6 mmol/L (3.5-5.1); Sodium 140 mmol/L (136-145); Total Bilirubin 0.2 mg/dL (0.15-1.2); Total Protein 5.1 g/dL (6.6-8.7)
[2024-08-14 06:15] LABS: INR 0.94 (0.8-1.2)
[2024-08-14 06:16] LABS: Fibrinogen 232 mg/dL (174-498)
[2024-08-14] MEDS: ALPRAZolam 0.5 mg Tablet PO ×2 (08:44→20:14)
[2024-08-14] MEDS: pantoprazole DR 40 mg Tablet PO (08:44)
[2024-08-14] MEDS: enoxaparin 40 mg/0.4 mL Syringe SUBCUT (08:44)
[2024-08-14] MEDS: ondansetron 2 mg/ML SDV 2 mL 4 MG IVP (08:54)
[2024-08-14] MEDS: oxyCODONE-APAP 5-325 mg Tablet 1 TAB PO ×2 (11:43→20:14)
--- NOTE | 2024-08-14 12:25 | P.PN_ITS ---
Subjective 2 Subjective: No acute overnight events noted. Seen her at bedside this morning. Right lower extremity swelling improved, erythema improved. She is feeling better but still having severe pain 9/10 in intensity control with current pain regimen. Seems less anxious this morning. Medications: Reviewed: Yes Vitals/I&O/Wt Last Vital Signs Temp 97.9 F 08/14/24 04:00 Pulse 63 08/14/24 12:00 Resp 13 08/14/24 12:00 BP 121/79 08/14/24 12:00 Pulse Ox 98 08/14/24 12:00 O2 Del Method Room Air 08/14/24 12:00 08/13/24 08/14/24 08/14/24 22:59 06:59 14:59 Intake Total 1275 / 1995 250 / 2245 1200 / 1200 Output Total 700 / 700 1000 / 1700 Balance 575 / 1295 -750 / 545 1200 / 1200 Weight last 48 hrs Weight 79 kg Weight 78.5 kg Weight 78.5 kg Weight 74.843 kg Physical Exam 2 Narrative: She is alert awake oriented x 3, in moderate distress due to right lower extremity pain. Chest clear to auscultation bilaterally Cardiovascular normal heart sounds Abdomen soft nontender nondistended normal bowel sounds Extremities left lower extremity no edema noted Right lower extremity-nonpitting edema noted, erythema, warmth improved still diffuse tenderness present. Snake bite woodward clean and crisp, no active signs of infection or cellulitis. Urinary Catheter Management: Faustin: Cath Placed During This Visit: yes Reason for Continuing Indwelling Catheter: Accurate Measurement of Urinary Output in Critically Ill Patients Urinary Catheter Date of Insertion: 08/13/24 Urinary Catheter Time of Insertion: 06:46 Data 08/14/24 03:25 08/14/24 03:25 A&P Assessment and plan (1) Poisoning by pit viper venom: Right ankle and foot swollen on arrival to ER, bitten by copperhead snake on the back of the right ankle, around 6 PM while walking her dogs. With signs of envenomation, subsequently signs of progression with worsening edema. Blood pressure soft down as low as 91/49. Reviewed vitals, CBC, INR, CMP, CK, ER note, discussed with ER provider. Swelling has been progressing from the right ankle down to the rest of the foot and toes as well as up the right lower leg and across the knee. She was given CroFab which was started before 5 AM, looks like around 4: 19. There is pain, tenderness, swelling of right lower extremity, bruising of the dorsal lateral right foot. So far blood pressure has been soft, but otherwise afebrile, with mild leukocytosis 13.21, platelets are normal, INR was checked, fibrinogen as well and both normal. CK normal. He is having quite a bit of pain, became nauseated after morphine. Complete CroFab initial dose. Please reassess 1 hour later. Admitted to ICU, monitor for risk of anaphylactic reaction. If any further worsening, consider repeating dose, although most people do not require repeat dosing as per discussion with poison control. Edema is soft and not taut. Monitor for any signs of compartment syndrome. Requested tetanus update. Additionally will assess lower extremity duplex for any DVT. Elevate right lower extremity, keep immobile. Acetaminophen, Toradol as needed for pain. IV Dilaudid for severe breakthrough pain which she has been needing. Plan History of migraine headaches: No recent headaches Former smoker, has quit. 08/13--s/p 1 CroFab treatment containing 4 vials. Has mild leukocytosis at 13.2. PT INR and fibrinogen normal. Spoke with poison control this morning, informed about the current examination findings showing improving erythema in the right lower extremity with no signs of infection/cellulitis around bite woodward. Recommended to avoid antibiotics unless has worsening erythema and obvious signs of cellulitis. Will do hydration with normal saline at 75 cc/h. Recommended to remove any constraining clothings, no socks. continue elevation of right extremity.will follow up. Venous duplex right lower extremity was negative for DVT. Will continue to monitor in ICU for next 24 hours. 08/14--she was noticed to have increased swelling in right lower extremity extending vertically beyond knee with more noticeable erythematous patches circumferentially covering right lower extremity. Hence had extensive discussion with poison control last night and as per them this is more like tissue injury secondary to envenomation and there is no need for further intervention with CroFab or antibiotics. Labs this morning has normal WBC count. She is afebrile with no active signs of infection. Will continue to monitor in ICU for 1 more day and transfer to floor for further care. Continue to elevate right lower extremity. Continue pain regimen with Dilaudid 0.5 mg every 4 hours as needed, Percocet 1 tab every 6 hours as needed, Toradol 30 mg every 12 hours as needed. She is also receiving Xanax 0.5 mg 3 times daily as needed for anxiety. Regular diet GI prophylaxis with Protonix DVT prophylaxis with subcutaneous Lovenox Attestations 2 Medical Necessity Statement*: She needs continued hospitalization crossing 2 midnights for management following copperhead envenomation, erythema consistent with tissue damage and significant swelling across multiple joints. Time Spent in Patient Care: 20 minutes Coding Level of Care Code Acute Code for [facility] Diagnoses Poisoning by pit viper venom T63.091A Time Spent (min) 20
--- NOTE | 2024-08-14 17:32 | PC.NURSE ---
During morning assessment, patient C/O pain 9/10, Dilaudid given, See MAR. Patient continues to complain of 7/10 pain, and requesting Fentanyl patch. Dr. Epperson assessed patient and ordered Fentanyl patch, however collaboration with pharmacy resulted in order for scheduled Dilaudid, Po oxycodone and PRN Dilaudid orders, DC Fentanyl patch. Patient educated on pain management goals and options. Education on importance of turning and ambulation, as tolerated, provided to patient, patient verbalized understanding. Pain appears to be controlled at the time of this note; using these orders. Patient reports she can now move her right ankle and toes without significant pain, redness is receding. 2+ Edema remains present in right foot and leg. During the afternoon, patient was found attempting to get out of bed, patient educated on fall risk after receiving IVP pain meds and Po pain meds, Patient assisted to BSC and instructed once more ground operations crew member light use. Patient C/O Faustin leaking while up to BSC. When back to bed Faustin catheter assessed and found to be functioning properly, 9ml fluid returned from balloon, balloon inflated with 10ml and reassessed later, no more leaking found or reported. Patient family member Dulce, at bedside appearing disgruntled at times, patient and family member educated on process, plan of care, pain management. Patient and family had no questions for this nurse.
[2024-08-15] VITALS (25 sets, daily range): BP systolic 90–145; BP diastolic 53–100; PULSE 61–90; RESP 9–23; TEMP 36.6–37.5; O2SAT 95–100
[2024-08-15] MEDS: HYDROmorphone 1 mg/mL INJ 1 mL 0.5 MG IVP ×2 (01:36→21:13)
[2024-08-15] MEDS: acetaminophen 325 mg Tablet 650 MG PO (05:03)
[2024-08-15] MEDS: ondansetron 2 mg/ML SDV 2 mL 4 MG IVP (05:09)
--- NOTE | 2024-08-15 05:23 | PC.NURSE ---
When phlebotomy entered room to draw morning labs patient reports having a bad headache. When questioned by this nurse patient is moaning and groaning and states I have a bad headache all over my head. When questioned further patient reports that she gets migraines. Offered pain medications choices to patient and she chose to take tylenol at present time. Cool washcloth placed over forehead. Reports some nausea, zofran given for nausea as ordered.
[2024-08-15 05:40] LABS: Basophils % 0.7 %; Eosinophils # 0.2 10^3/uL (0.0-0.8); Hematocrit 36.5 % (36-47); Lymphocytes # 2.4 10^3/uL (0.8-4.8); Lymphocytes % 41.9 %; Mean Corpuscular HGB Conc 32.6 g/dL (30-55); Mean Corpuscular Hemoglobin 30.4 pg (27-33); Mean Corpuscular Volume 93.4 fl (85-98); Mean Platelet Volume 9.8 fL (7.4-10.4); Monocytes # 0.6 10^3/uL (0.2-0.9); Monocytes % 9.9 %; Neutrophils # 2.51 10^3/uL (1.8-7.7); Neutrophils % 44.3 %; Nucleated Red Blood Cells % 0 %; Platelet Count 225 10^3/cmm (157-399); Red Blood Count 3.91 10^6/uL (3.85-5.65); White Blood Count 5.66 10^3/uL (3.29-11.43)
[2024-08-15 06:08] LABS: Alanine Aminotransferase 9 U/L (0-33); Albumin Level 3.4 g/dL (3.5-5.2); Alkaline Phosphatase 42 U/L (35-105); Anion Gap 11.3 (5-19); Aspartate Amino Transferase 12 U/L (0-32); Blood Urea Nitrogen 12 mg/dL (6-20); Calcium 8.3 mg/dL (8.5-10.5); Carbon Dioxide 28 mmol/L (22-29); Chloride 106 mmol/L (98-107); Creatinine Clr Calc Pharmacy 98.2529; Globulin 1.6 g/dL (1.3-4.6); Glomerular Filtration Rate 81.2 mL/min (90-130); Glucose 93 mg/dL (65-115); Osmolality Calculated 291 mOsm/kg (285-295); Potassium 4.3 mmol/L (3.5-5.1); Sodium 141 mmol/L (136-145); Total Bilirubin 0.2 mg/dL (0.15-1.2)
[2024-08-15] MEDS: enoxaparin 40 mg/0.4 mL Syringe SUBCUT (08:30)
[2024-08-15] MEDS: ketorolac 30 mg/mL INJ IVP ×2 (08:30→17:15)
[2024-08-15] MEDS: pantoprazole DR 40 mg Tablet PO (08:30)
[2024-08-15] MEDS: cyclobenzaprine 10 mg Tablet PO (09:17)
[2024-08-15] MEDS: diclofenac 1% Topical Gel 100 gm 1 APPLIC TOPICAL ×4 (09:17→21:09)
[2024-08-15] MEDS: polyethylene glycol 3350 Pkt 17 gm PO (09:18)
--- NOTE | 2024-08-15 10:08 | PC.NURSE ---
Ronna, Poison Control phone call Stated pt is okay to discharge on their end when pt's pain is controlled. Recommends PT/OT consult. States pt is safe to ambulate with non weight bearing on right leg and high elevation when resting. Stated pt may experience serum sickness 1-3 weeks out which could include low grade fever, joint pain, slight swollen lymph nodes, rash. Pt needs to go to ED if abnormal bruising, bleeding, high fever, or severe swelling occur. Pt may also experience slight swelling in foot one month out if physical activity increases and to wear appropriate, loose fitting shoes.
--- NOTE | 2024-08-15 11:57 | P.PN_ITS ---
Subjective 2 Subjective: No acute overnight events noted seen her at bedside this morning. Feels better but has her migraine headache. Able to tolerate the pain and asking for last IV pain medications. Medications: Reviewed: Yes Vitals/I&O/Wt Last Vital Signs Temp 98.7 F 08/15/24 08:00 Pulse 89 08/15/24 09:00 Resp 18 08/15/24 09:00 BP 119/75 08/15/24 09:00 Pulse Ox 100 08/15/24 09:00 O2 Del Method Room Air 08/15/24 04:00 08/14/24 08/15/24 08/15/24 22:59 06:59 14:59 Intake Total 300 / 1700 200 / 1900 240 / 240 Output Total 2200 / 2200 1600 / 3800 1400 / 1400 Balance -1900 / -500 -1400 / -1900 -1160 / -1160 Weight last 48 hrs Weight 78 kg Weight 79 kg Physical Exam 2 Narrative: She is alert awake oriented x 3, in moderate distress due to right lower extremity pain. Chest clear to auscultation bilaterally Cardiovascular normal heart sounds Abdomen soft nontender nondistended normal bowel sounds Extremities left lower extremity no edema noted Right lower extremity-nonpitting edema noted, erythema, warmth improved still diffuse tenderness present. Snake bite woodward clean and crisp, no active signs of infection or cellulitis. Exam findings improved as compared to admission Urinary Catheter Management: Faustin: Cath Placed During This Visit: yes Reason for Continuing Indwelling Catheter: Accurate Measurement of Urinary Output in Critically Ill Patients Urinary Catheter Date of Insertion: 08/13/24 Urinary Catheter Time of Insertion: 06:46 Data 08/15/24 04:57 08/15/24 04:57 A&P Assessment and plan (1) Poisoning by pit viper venom: Right ankle and foot swollen on arrival to ER, bitten by copperhead snake on the back of the right ankle, around 6 PM while walking her dogs. With signs of envenomation, subsequently signs of progression with worsening edema. Blood pressure soft down as low as 91/49. Reviewed vitals, CBC, INR, CMP, CK, ER note, discussed with ER provider. Swelling has been progressing from the right ankle down to the rest of the foot and toes as well as up the right lower leg and across the knee. She was given CroFab which was started before 5 AM, looks like around 4: 19. There is pain, tenderness, swelling of right lower extremity, bruising of the dorsal lateral right foot. So far blood pressure has been soft, but otherwise afebrile, with mild leukocytosis 13.21, platelets are normal, INR was checked, fibrinogen as well and both normal. CK normal. He is having quite a bit of pain, became nauseated after morphine. Complete CroFab initial dose. Please reassess 1 hour later. Admitted to ICU, monitor for risk of anaphylactic reaction. If any further worsening, consider repeating dose, although most people do not require repeat dosing as per discussion with poison control. Edema is soft and not taut. Monitor for any signs of compartment syndrome. Requested tetanus update. Additionally will assess lower extremity duplex for any DVT. Elevate right lower extremity, keep immobile. Acetaminophen, Toradol as needed for pain. IV Dilaudid for severe breakthrough pain which she has been needing. Plan History of migraine headaches: No recent headaches Former smoker, has quit. 08/13--s/p 1 CroFab treatment containing 4 vials. Has mild leukocytosis at 13.2. PT INR and fibrinogen normal. Spoke with poison control this morning, informed about the current examination findings showing improving erythema in the right lower extremity with no signs of infection/cellulitis around bite woodward. Recommended to avoid antibiotics unless has worsening erythema and obvious signs of cellulitis. Will do hydration with normal saline at 75 cc/h. Recommended to remove any constraining clothings, no socks. continue elevation of right extremity.will follow up. Venous duplex right lower extremity was negative for DVT. Will continue to monitor in ICU for next 24 hours. 08/14--she was noticed to have increased swelling in right lower extremity extending vertically beyond knee with more noticeable erythematous patches circumferentially covering right lower extremity. Hence had extensive discussion with poison control last night and as per them this is more like tissue injury secondary to envenomation and there is no need for further intervention with CroFab or antibiotics. Labs this morning has normal WBC count. She is afebrile with no active signs of infection. Will continue to monitor in ICU for 1 more day and transfer to floor for further care. Continue to elevate right lower extremity. Continue pain regimen with Dilaudid 0.5 mg every 4 hours as needed, Percocet 1 tab every 6 hours as needed, Toradol 30 mg every 12 hours as needed. She is also receiving Xanax 0.5 mg 3 times daily as needed for anxiety. Regular diet GI prophylaxis with Protonix DVT prophylaxis with subcutaneous Lovenox 08/15--she has been cleared for discharge by poison control. Will monitor her for 1 more day, can be transferred to floor if needed ICU beds. Anticipating discharge in a.m. Attestations 2 Medical Necessity Statement*: Monitoring for 1 more day and anticipating discharge in a.m. Time Spent in Patient Care: 15 minutes Coding Level of Care Code Acute Code for Chg Fwd Diagnoses Poisoning by pit viper venom T63.091A Time Spent (min) 15
--- NOTE | 2024-08-15 12:02 | PC.NURSE ---
Pt c/o body aches and chills. Oral temp 99.5. Axillary temp 98.4. Dr Epperson notified.
--- NOTE | 2024-08-15 17:31 | PC.NURSE ---
Pt had large BM. Miralax order changed from BID to Daily per order.
[2024-08-16] VITALS (14 sets, daily range): BP systolic 106–132; BP diastolic 64–91; PULSE 55–107; RESP 10–19; TEMP 36.6–36.7; O2SAT 94–99; BMI 28.8
[2024-08-16 04:02] LABS: Basophils % 0.6 %; Eosinophils # 0.2 10^3/uL (0.0-0.8); Eosinophils % 3.3 %; Hematocrit 36.6 % (36-47); Lymphocytes # 2.1 10^3/uL (0.8-4.8); Lymphocytes % 42.7 %; Mean Corpuscular HGB Conc 32.2 g/dL (30-55); Mean Corpuscular Hemoglobin 29.9 pg (27-33); Mean Corpuscular Volume 92.7 fl (85-98); Mean Platelet Volume 9.8 fL (7.4-10.4); Monocytes # 0.5 10^3/uL (0.2-0.9); Neutrophils # 2.14 10^3/uL (1.8-7.7); Neutrophils % 43.4 %; Nucleated Red Blood Cells % 0 %; Platelet Count 237 10^3/cmm (157-399); Red Blood Count 3.95 10^6/uL (3.85-5.65); Red Cell Distribution Width 12.5 % (12.1-15.1); White Blood Count 4.92 10^3/uL (3.29-11.43)
[2024-08-16 04:27] LABS: Alanine Aminotransferase 15 U/L (0-33); Albumin Level 3.5 g/dL (3.5-5.2); Alkaline Phosphatase 50 U/L (35-105); Aspartate Amino Transferase 19 U/L (0-32); Blood Urea Nitrogen 15 mg/dL (6-20); Calcium 8.6 mg/dL (8.5-10.5); Carbon Dioxide 30 mmol/L (22-29); Chloride 106 mmol/L (98-107); Creatinine Clr Calc Pharmacy 98.2529; Globulin 1.8 g/dL (1.3-4.6); Glomerular Filtration Rate 81.2 mL/min (90-130); Glucose 105 mg/dL (65-115); Osmolality Calculated 293 mOsm/kg (285-295); Sodium 141 mmol/L (136-145); Total Bilirubin 0.2 mg/dL (0.15-1.2); Total Protein 5.3 g/dL (6.6-8.7)
[2024-08-16] MEDS: ketorolac 30 mg/mL INJ IVP (06:48)
[2024-08-16] MEDS: polyethylene glycol 3350 Pkt 17 gm PO (09:01)
[2024-08-16] MEDS: enoxaparin 40 mg/0.4 mL Syringe SUBCUT (09:01)
[2024-08-16] MEDS: pantoprazole DR 40 mg Tablet PO (09:01)
[2024-08-16] MEDS: diclofenac 1% Topical Gel 100 gm 1 APPLIC TOPICAL (09:04)
[2024-08-16] MEDS: cyclobenzaprine 10 mg Tablet PO (09:09)
[2024-08-16] MEDS: oxyCODONE-APAP 5-325 mg Tablet 1 TAB PO (09:09)
--- NOTE | 2024-08-16 09:50 | PM.DCS ---
Discharge Providers Date of Admission: 08/14/24 09:47 Date of Discharge: August 16, 2024 Attending Provider at Admission: Ramana Car Attending Provider at Discharge: Nancy Epperson MD Diagnoses at Discharge Discharge Diagnosis (1) Poisoning by pit viper venom: Status: Acute Reason for Visit Reason for Visit: Snake Bite Brief History: 38 yearly with history of migraine, former smoker, without significant other medical history was walking her dogs when she got bit on the ankle by a copperhead which she then spotted. In ER she is experienced swelling around the right ankle down to the foot with bruising on the lateral side, as well as swelling tracking up the leg to and then crossing the knee. She was started on CroFab. Hospital Course Hospital Course (1) Poisoning by pit viper venom: Right ankle and foot swollen on arrival to ER, bitten by copperhead snake on the back of the right ankle, around 6 PM while walking her dogs. With signs of envenomation, subsequently signs of progression with worsening edema. Blood pressure soft down as low as 91/49. Reviewed vitals, CBC, INR, CMP, CK, ER note, discussed with ER provider. Swelling has been progressing from the right ankle down to the rest of the foot and toes as well as up the right lower leg and across the knee. She was given CroFab which was started before 5 AM, looks like around 4: 19. There is pain, tenderness, swelling of right lower extremity, bruising of the dorsal lateral right foot. So far blood pressure has been soft, but otherwise afebrile, with mild leukocytosis 13.21, platelets are normal, INR was checked, fibrinogen as well and both normal. CK normal. He is having quite a bit of pain, became nauseated after morphine. Complete CroFab initial dose. Please reassess 1 hour later. Admitted to ICU, monitor for risk of anaphylactic reaction. If any further worsening, consider repeating dose, although most people do not require repeat dosing as per discussion with poison control. Edema is soft and not taut. Monitor for any signs of compartment syndrome. Requested tetanus update. Additionally will assess lower extremity duplex for any DVT. Elevate right lower extremity, keep immobile. Acetaminophen, Toradol as needed for pain. IV Dilaudid for severe breakthrough pain which she has been needing. 08/13--s/p 1 CroFab treatment containing 4 vials. Has mild leukocytosis at 13.2. PT INR and fibrinogen normal. Spoke with poison control this morning, informed about the current examination findings showing improving erythema in the right lower extremity with no signs of infection/cellulitis around bite woodward. Recommended to avoid antibiotics unless has worsening erythema and obvious signs of cellulitis. Will do hydration with normal saline at 75 cc/h. Recommended to remove any constraining clothings, no socks. continue elevation of right extremity.will follow up. Venous duplex right lower extremity was negative for DVT. Will continue to monitor in ICU for next 24 hours. 08/14--she was noticed to have increased swelling in right lower extremity extending vertically beyond knee with more noticeable erythematous patches circumferentially covering right lower extremity. Hence had extensive discussion with poison control last night and as per them this is more like tissue injury secondary to envenomation and there is no need for further intervention with CroFab or antibiotics. Labs this morning has normal WBC count. She is afebrile with no active signs of infection. Will continue to monitor in ICU for 1 more day and transfer to floor for further care. Continue to elevate right lower extremity. Continue pain regimen with Dilaudid 0.5 mg every 4 hours as needed, Percocet 1 tab every 6 hours as needed, Toradol 30 mg every 12 hours as needed. She is also receiving Xanax 0.5 mg 3 times daily as needed for anxiety. Regular diet GI prophylaxis with Protonix DVT prophylaxis with subcutaneous Lovenox 08/15--she has been cleared for discharge by poison control. Will monitor her for 1 more day, can be transferred to floor if needed ICU beds. Anticipating discharge in a.m. 08/16--She is doing better, right leg edema improved with no erythema, bluish green discoloration noted in patches likely secondary to tissue damage. pain well controlled, needing less pain meds. Physical Exam Narrative: She is alert awake oriented x 3, in moderate distress due to right lower extremity pain. Chest clear to auscultation bilaterally Cardiovascular normal heart sounds Abdomen soft nontender nondistended normal bowel sounds Extremities left lower extremity no edema noted Right lower extremity-nonpitting edema noted, no erythema just bluish green discoloration, normal temperature. Snake bite woodward clean and healing, no active signs of infection or cellulitis. Exam findings much improved as compared to admission Urinary Catheter Management: Faustin: Cath Placed During This Visit: yes, but has since been removed by the nurse Reason for Continuing Indwelling Catheter: Decision to DC Catheter Urinary Catheter Date of Insertion: 08/13/24 Urinary Catheter Time of Insertion: 06:46 Date Urinary Catheter Removed: 08/15/24 Time Urinary Catheter Discontinued: 17:00 Discharge Data Studies Completed and Pending Completed Studies During Hospitalization Category [place] [id number] Routine Ultrasound 08/13/24 05:44 Completed Radiology Impressions Venous Duplex 08/13/24 05:44 IMPRESSION: No evidence of deep vein thrombosis. Laboratory Results WBC 4.92 10^3/uL (3.29-11.43) 08/16/24 03:25 RBC 3.95 10^6/uL (3.85-5.65) 08/16/24 03:25 Hgb 11.80 g/dL (11.27-16.99) 08/16/24 03:25 Hct 36.6 % (36-47) 08/16/24 03:25 MCV 92.7 fl (85-98) 08/16/24 03:25 MCH 29.9 pg (27-33) 08/16/24 03:25 MCHC 32.2 g/dL (30-55) 08/16/24 03:25 RDW 12.5 % (12.1-15.1) 08/16/24 03:25 Plt Count 237 10^3/cmm (157-399) 08/16/24 03:25 MPV 9.8 fL (7.4-10.4) 08/16/24 03:25 Neut % (Auto) 43.4 % 08/16/24 03:25 Lymph % (Auto) 42.7 % 08/16/24 03:25 [place] % (Auto) 10.0 % 08/16/24 03:25 Eos % (Auto) 3.3 % 08/16/24 03:25 Baso % (Auto) 0.6 % 08/16/24 03:25 Neut # (Auto) 2.14 10^3/uL (1.8-7.7) 08/16/24 03:25 Lymph # (Auto) 2.1 10^3/uL (0.8-4.8) 08/16/24 03:25 [place] # (Auto) 0.5 10^3/uL (0.2-0.9) 08/16/24 03:25 Eos # (Auto) 0.2 10^3/uL (0.0-0.8) 08/16/24 03:25 Baso # (Auto) 0.0 10^3/uL (0.0-0.1) 08/16/24 03:25 Nucleated RBC % (auto) 0 % 08/16/24 03:25 Nucleated RBCs # 0.0 /100WBC 08/16/24 03:25 PT 12.80 SECONDS (12.1-14.9) 08/14/24 03:25 INR 0.94 (0.8-1.2) 08/14/24 03:25 APTT 27.4 SECONDS (23.9-36.7) 08/14/24 03:25 Fibrinogen 232 mg/dL (174-498) 08/14/24 03:25 Sodium 141 mmol/L (136-145) 08/16/24 03:25 Potassium 4.0 mmol/L (3.5-5.1) 08/16/24 03:25 Chloride 106 mmol/L (98-107) 08/16/24 03:25 Carbon Dioxide 30 mmol/L (22-29) H 08/16/24 03:25 Anion Gap 9.0 (5-19) 08/16/24 03:25 BUN 15 mg/dL (6-20) 08/16/24 03:25 Creatinine 0.8 mg/dL (0.5-0.9) 08/16/24 03:25 GFR Calculation 81.2 mL/min (90-130) L 08/16/24 03:25 Glucose 105 mg/dL (65-115) 08/16/24 03:25 Calculated Osmolality 293 mOsm/kg (285-295) 08/16/24 03:25 Calcium 8.6 mg/dL (8.5-10.5) 08/16/24 03:25 Total Bilirubin 0.2 mg/dL (0.15-1.2) 08/16/24 03:25 AST 19 U/L (0-32) 08/16/24 03:25 ALT 15 U/L (0-33) 08/16/24 03:25 Alkaline Phosphatase 50 U/L (35-105) 08/16/24 03:25 Creatine Kinase 131 U/L (26-192) 08/12/24 20:49 Total Protein 5.3 g/dL (6.6-8.7) L 08/16/24 03:25 Albumin 3.5 g/dL (3.5-5.2) 08/16/24 03:25 Globulin 1.8 g/dL (1.3-4.6) 08/16/24 03:25 Vitals Last Vital Signs Temp 97.8 F 08/16/24 08:00 Pulse 68 08/16/24 09:15 Resp 16 08/16/24 09:15 BP 132/91 08/16/24 09:15 Pulse Ox 98 08/16/24 09:15 O2 Del Method Room Air 08/16/24 09:15 Discharge Plan Discharge Patient Disposition: Home Condition: Stable Prescriptions: New oxycodone-acetaminophen 5-325 mg Tablet 1 tab PO Q6H PRN (Reason: Severe Pain) 5 Days Qty: 10 0RF alprazolam 0.5 mg Tablet 0.5 mg PO TID PRN (Reason: Anxiety) 5 Days Qty: 15 0RF Discharge Orders: Discharge Order (Routine); Ordered 08/16/24 Ordered By: Nancy Epperson Other Ambulatory Orders: DME: Cane/ Crutches (Order) Location: None Selected Ordered By: Nancy Epperson Referrals: Angella Lopez MD [Physician] - 08/21/24 9:40 am (Ypu will see Maris Orr at the [facility]. ) Discharge Diet: Regular Discharge Activity: Increase activity as tolerated Patient Instructions: Snake Bite (DC), Opioid Safety Discharge Attestations Time Spent in Discharge Care*: less than 30 min Quality Metrics Clinical Quality Measures [ No reported AMI, CVA or VTE this stay] Coding Level of Care Code Acute Code for Chg Fwd Diagnoses Poisoning by pit viper venom T63.091A Time Spent (min) 10
--- NOTE | 2024-08-16 10:39 | PC.NURSE ---
Discharge instructions provided and reviewed with pt. Pt verbalized understanding. Prescriptions (2) and work release given to patient. Pt discharged awaiting transportation.
== END 2024-08-16 10:39 | disposition home or self-care (01) | DRG 918 ==
LOC: ER 22:00 → MEDSURG 08-13 04:44 → ICU 08-13 04:49
PROVIDERS: Emergency Medicine; Admitting Provider Internal Medicine; Emergency Provider Emergency Medicine; Visit Provider Internal Medicine
DX: T63.091A Toxic effect of venom of other snake, accidental (unintentional), initial encounter (principal); G43.909 Migraine, unspecified, not intractable, without status migrainosus; Y92.89 Other specified places as the place of occurrence of the external cause
CPT/HCPCS: 36415; 51702; 80048; 80053; 82550; 85025; 85049; 85384; 85610; 85730; 90471; 90714; 93971; 96365; 96372; 96374; 96375; 96376; 99285; G0378; J0840; J1170; J1200; J1650; J1885; J2270; J2405; J2919; J3010; J7030; J7050

== ENCOUNTER → 2025-10-22 11:11 | Outpatient (BNVA) | payer MEDICAID, SELFPAY | PROVIDERS: Visit Provider Nurse Practitioner Family | DX: N76.0 Acute vaginitis (principal); B96.89 Other specified bacterial agents as the cause of diseases classified elsewhere | CPT/HCPCS: 87491; 87591; 87661 ==